=== PATIENT | male | born 1955 | race Caucasian/White ===

== ENCOUNTER 2024-10-10 13:00 | Emergency (ER) | payer MEDICARE, SELFPAY ==
--- NOTE | 2024-10-10 13:01 | ECG_ITS ---
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
[2024-10-10 13:02] VITALS: BP 164/69; PULSE 59; RESP 16; TEMP 36.4; O2SAT 97; BMI 28.5
--- NOTE | 2024-10-10 13:02 | XRR_ITS ---
PROCEDURE INFORMATION: Exam: XR Chest Exam date and time: 10/10/2024 2:02 PM Age: 68 years old Clinical indication: Injury or trauma; Fall; Blunt trauma (contusions or hematomas); Injury details: Fell on a bucket causing pain in chest TECHNIQUE: Imaging protocol: Radiologic exam of the chest. Views: 1 view. COMPARISON: No relevant prior studies available. FINDINGS: Lungs: Unremarkable. No consolidation. Pleural spaces: Unremarkable. No pleural effusion. No pneumothorax. Heart/Mediastinum: Unremarkable. No cardiomegaly. Mild uncoiling of the thoracic aorta. Bones/joints: Unremarkable. XR/XR chest 1V portable [id number] IMPRESSION: No acute findings.
[2024-10-10 14:11] LABS: Basophils % 0.6 %; Eosinophils # 0.3 10^3/uL (0.0-0.8); Eosinophils % 4.6 %; Hematocrit 42.4 % (37-53); Lymphocytes # 2.5 10^3/uL (0.8-4.8); Lymphocytes % 36.2 %; Mean Corpuscular HGB Conc 31.8 g/dL (30-55); Mean Corpuscular Volume 91.2 fl (82-101); Mean Platelet Volume 9.4 fL (7.4-10.4); Monocytes # 0.5 10^3/uL (0.2-0.9); Monocytes % 7.6 %; Neutrophils # 3.54 10^3/uL (1.8-7.7); Neutrophils % 50.7 %; Nucleated Red Blood Cells % 0 %; Platelet Count 148 10^3/cmm (157-399); Red Blood Count 4.65 10^6/uL (3.85-5.65); Red Cell Distribution Width 13.4 % (12.1-15.1); White Blood Count 6.97 10^3/uL (3.29-11.43)
--- NOTE | 2024-10-10 14:22 | ED_ITS ---
HPI - Chest Pain 2 General: Chief Complaint: Chest Pain Stated Complaint: fall on a bucket, chest pain, sob Time Seen by Provider: 10/10/24 14:18 Source: patient Mode of arrival: ambulatory Limitations: no limitations History of Present Illness: 68-year-old male states that he fell on a bucket a week ago. He states he had landed in the center of his chest he states he has been having chest pain since then he states been having pain with breathing to. He does have yellow bruise across to his chest he states pain sharp in nature and has been radiating to his back. Denies any other injuries from the fall Associated symptoms: Deny abdominal pain, dyspnea, fever(s), nausea or vomiting Related Data Home Medications ?Medication ?Instructions ?Recorded ?Confirmed amlodipine 10 mg tablet 10 mg PO DAILY 10/10/2410/01 insulin glargine 100 unit/mL (3 21 unit SUBCUT DAILY 0 10/10/24 10/10/24 mL) subcutaneous pen (Lantus Solostar U-100 Insulin) insulin glargine-yfgn 100 unit/mL See Rx Instructions .Route .COMPLEX 10/10/24 10/10/24 (3 mL) subcutaneous pen (Semglee (insulin glargine-yfgn) Pen) metformin 1,000 mg tablet 1,000 mg PO BID 10/10/2405/27 morphine 15 mg tablet,extended 15 mg PO BID 10/10/24 0 10/10/24 release oxybutynin chloride 10 mg 10 mg PO DAILY 10/10/2410/01 tablet,extended release 24 hr oxycodone-acetaminophen 10 mg-325 1 tab PO BID 5 10/10/24 mg tablet telmisartan 40 mg tablet 40 mg PO DAILY 10/10/2410/01 tirzepatide 2.5 mg/0.5 mL 2.5 mg SUBCUT Q7D 10/10/24 0 10/10/24 subcutaneous pen injector (Mounjaro) trazodone 50 mg tablet 50 mg PO DAILY 10/10/2410/01 Allergies Allergy/AdvReac Type Severity Reaction Status Date / Time adhesive tape Allergy Unknown Verified 10/10/24 13:11 Latex, Natural Rubber Allergy Unknown Verified 10/10/24 13:11 pineapple Allergy Unknown Verified 10/10/24 13:11 Review of Systems 2 Const: Denies: fever(s), chills, body aches or change in appetite ENMT: Denies: throat pain or dental pain Resp: Denies: dyspnea GI: Denies: abdominal pain, nausea, vomiting or diarrhea : Denies: dysuria Musc: Denies: neck pain or back pain Skin/Breast: Denies: rash Neuro: Denies: headache(s) Physical Exam 2 Const: COMMON NORMALS: no acute distress, patient oriented x3 and healthy appearing HENMT: COMMON NORMALS: normocephalic and atraumatic HEAD & SCALP: n ormocephalic and atraumatic Eye: COMMON NORMALS: conjunctivae normal CONJUNCTIVA: Yes conjunctivae normal Neck/C-Spine: COMMON NORMALS: full ROM and supple Chest: OTHER: tendernesss in center of chest with bruising Resp: COMMON NORMALS: normal respiratory effort, No retractions, No use of accessory muscles and clear to auscultation bilaterally AUSCULTATION: clear to auscultation bilaterally Cardio: COMMON NORMALS: regular rate, regular rhythm and No murmurs present (Cardio) RATE: regular rate RHYTHM: regular rhythm GI: COMMON NORMALS: Normal to inspection, nondistended, normoactive bowel sounds present, Soft to palpation, non-tender and no masses PALPATION: Yes Soft to palpation Extremity: COMMON NORMALS: normal to inspection and full ROM Neuro: COMMON NORMALS: patient oriented x3, moves all extremities and no focal motor deficits Psych: COMMON NORMALS: mental status grossly normal, Normal thought process present and cooperative THOUGHT PROCESS: Normal thought process present Skin: COMMON NORMALS: no rashes or lesions noted and no wounds GENERAL SKIN EXAM: no rashes or lesions noted Course 2 Vital Signs: Vital signs: Vital Signs Temperature 97.6 F 10/10/24 13:02 Pulse Rate 57 L 10/10/24 16:01 Respiratory Rate 16 10/10/24 13:02 Blood Pressure 146/87 10/10/24 16:01 Pulse Oximetry 95 10/10/24 16:01 Oxygen Delivery Me thod Room Air 10/10/24 13:02 MDM - Chest Pain Medical Decision Making Patient presents with chest wall contusion CT shows no fractures patient stable for discharge follow-up PCP return if worsening. Medical Records I reviewed the patient's medical records. Lab Data I reviewed the patient's lab results. 10/10/24 13:50 10/10/24 13:50 Radiology Impressions Chest X-Ray 10/10/24 13:02 IMPRESSION: No acute findings. Chest CT 10/10/24 14:31 IMPRESSION: No acute intrathoracic pathology. Laboratory Results WBC 6.97 10^3/uL (3.29-11.43) 10/10/24 13:50 RBC 4.65 10^6/uL (3.85-5.65) 10/10/24 13:50 Hgb 13.50 g/dL (11.27-16.99) 10/10/24 13:50 Hct 42.4 % (37-53) 10/10/24 13:50 MCV 91.2 fl (82-101) 10/10/24 13:50 MCH 29.0 pg (27-33) 10/10/24 13:50 MCHC 31.8 g/dL (30-55) 10/10/24 13:50 RDW 13.4 % (12.1-15.1) 10/10/24 13:50 Plt Count 148 10^3/cmm (157-399) L 10/10/24 13:50 MPV 9.4 fL (7.4-10.4) 10/10/24 13:50 Neut % (Auto) 50.7 % 10/10/24 13:50 Lymph % (Auto) 36.2 % 10/10/24 13:50 Harrison % (Auto) 7.6 % 10/10/24 13:50 Eos % (Auto) 4.6 % 10/10/24 13:50 Baso % (Auto) 0.6 % 10/10/24 13:50 Neut # (Auto) 3.54 10^3/uL (1.8-7.7) 10/10/24 13:50 Lymph # (Auto) 2.5 10^3/uL (0.8-4.8) 10/10/24 13:50 Harrison # (Auto) 0.5 10^3/uL (0.2-0.9) 10/10/24 13:50 Eos # (Auto) 0.3 10^3/uL (0.0-0.8) 10/10/24 13:50 Baso # (Auto) 0.0 10^3/uL (0.0-0.1) 10/10/24 13:50 Nucleated RBC % (auto) 0 % 10/10/24 13:50 Nucleated RBCs # 0.0 /100WBC 10/10/24 13:50 Sodium 139 mmol/L (136-145) 10/10/24 13:50 Potassium 4.1 mmol/L (3.5-5.1) 10/10/24 13:50 Chloride 100 mmol/L (98-107) 10/10/24 13:50 Carbon Dioxide 25 mmol/L (22-29) 10/10/24 13:50 Anion Gap 18.1 (5-19) 10/10/24 13:50 BUN 12 mg/dL (8-23) 10/10/24 13:50 Creatinine 0.7 mg/dL (0.7-1.2) 10/10/24 13:50 GFR Calculation 111.5 mL/min (90-130) 10/10/24 13:50 Glucose 134 mg/dL (65-115) H 10/10/24 13:50 Calculated Osmolality 290 mOsm/kg (285-295) 10/10/24 13:50 Calcium 10.0 mg/dL (8.5-10.5) 10/10/24 13:50 Total Bilirubin 0.6 mg/dL (0.15-1.2) 10/10/24 13:50 AST 17 U/L (0-40) 10/10/24 13:50 ALT 21 U/L (0-41) 10/10/24 13:50 Alkaline Phosphatase 101 U/L (40-130) 10/10/24 13:50 Troponin T Baseline 9 ng/L (0-15) 10/10/24 13:50 Total Protein 7.1 g/dL (6.6-8.7) 10/10/24 13:50 Albumin 4.7 g/dL (3.5-5.2) 10/10/24 13:50 Globulin 2.4 g/dL (1.3-4.6) 10/10/24 13:50 All radiology interpretation(s) finalized by discharge EKG Data EKG 1: I personally reviewed and interpreted this EKG as follows: EKG interpretation date: 10/10/24 EKG interpretation time: 14:58 Interpretation: sinus isaura hr [address] elevation qrs 106 qtc 420 Discharge Plan Discharge Patient Disposition: Home Clinical Impression: Chest wall contusion Condition: Stable Prescriptions: No Action trazodone 50 mg tablet 50 mg PO DAILY oxybutynin chloride 10 mg tablet extended release 24hr 10 mg PO DAILY oxycodone-acetaminophen 10-325 mg tablet 1 tab PO BID amlodipine 10 mg tablet 10 mg PO DAILY telmisartan 40 mg tablet 40 mg PO DAILY metformin 1,000 mg tablet 1,000 mg PO BID morphine 15 mg tablet extended release 15 mg PO BID insulin glargine [Lantus Solostar U-100 Insulin] 100 unit/mL (3 mL) insulin pen 21 unit SUBCUT DAILY insulin glargine-yfgn [Semglee(insulin glarg-yfgn)Pen] 100 unit/mL (3 mL) insulin pen See Rx Instructions .ROUTE .COMPLEX Rx Instructions: inject 20 units daily in the evening, prime with 2 units Mounjaro 2.5 mg/0.5 mL pen injector 2.5 mg SUBCUT Q7D Discharge Orders: Discharge ED (Routine); Ordered 10/10/24 Ordered By: Fortino Traore Discharge Diet: Advance as tolerated Discharge Activity: Resume usual activity Patient Instructions: Chest Contusion (ED) Print Language: Pakistani Coding Level of Care Code ED Ware[employer] Att[employer] for [employer] Felix
--- NOTE | 2024-10-10 14:31 | CTR_ITS ---
PROCEDURE INFORMATION: Exam: CT Chest With Contrast; Diagnostic Exam date and time: 10/10/2024 3:16 PM Age: 68 years old Clinical indication: Injury or trauma; Fall; Blunt trauma (contusions or hematomas) TECHNIQUE: Imaging protocol: Diagnostic computed tomography of the chest with contrast. Radiation optimization: All CT scans at this facility use at least one of these dose optimization techniques: automated exposure control; mA and/or kV adjustment per patient size (includes targeted exams where dose is matched to clinical indication); or iterative reconstruction. Contrast material: [id number]; Contrast volume: 100 ml; Contrast route: INTRAVENOUS (IV); COMPARISON: CR XR chest 1V portable [id number] 10/10/2024 2:02 PM RADIATION DOSE METRICS: Total DLP (mGy-cm): 452.21 FINDINGS: Lungs: Unremarkable. No consolidation. No masses. Pleural spaces: Unremarkable. No pneumothorax. No pleural effusion. Heart: Unremarkable. No cardiomegaly. No pericardial effusion. Lymph nodes: Unremarkable. No enlarged lymph nodes. Vasculature: Unremarkable. No aortic aneurysm. Diaphragm: Hiatal hernia containing mainly fat. Bones/joints: Unremarkable. No acute fracture. Soft tissues: Unremarkable. CT/CT chest w con* [id number] IMPRESSION: No acute intrathoracic pathology.
[2024-10-10 14:34] LABS: Troponin(5th) Baseline 9 ng/L (0-15)
[2024-10-10 14:35] LABS: Alanine Aminotransferase 21 U/L (0-41); Albumin Level 4.7 g/dL (3.5-5.2); Alkaline Phosphatase 101 U/L (40-130); Anion Gap 18.1 (5-19); Aspartate Amino Transferase 17 U/L (0-40); Blood Urea Nitrogen 12 mg/dL (8-23); Carbon Dioxide 25 mmol/L (22-29); Chloride 100 mmol/L (98-107); Creatinine Clr Calc Pharmacy 94.1077; Globulin 2.4 g/dL (1.3-4.6); Glomerular Filtration Rate 111.5 mL/min (90-130); Glucose 134 mg/dL (65-115); Osmolality Calculated 290 mOsm/kg (285-295); Potassium 4.1 mmol/L (3.5-5.1); Sodium 139 mmol/L (136-145); Total Bilirubin 0.6 mg/dL (0.15-1.2); Total Protein 7.1 g/dL (6.6-8.7)
[2024-10-10] MEDS: iohexol 350 mg/mL 500 mL Btl (per mL) IV (15:18)
--- NOTE | 2024-10-10 15:29 | ECG_ITS ---
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
[2024-10-10 16:01] VITALS: BP 146/87; PULSE 57; O2SAT 95
== END 2024-10-10 16:04 | disposition home or self-care (01) ==
PROVIDERS: Emergency Provider Emergency Medicine
DX: S20.219A Contusion of unspecified front wall of thorax, initial encounter (principal); Z79.4 Long term (current) use of insulin; W19.XXXA Unspecified fall, initial encounter
CPT/HCPCS: 36415; 71045; 71260; 80053; 84484; 85025; 93005; 99285